=== PATIENT | female | born 1995 | race Two or more races ===

== ENCOUNTER 2018-08-13 20:15 | Emergency (ER) | payer MEDICAID ==
[~2018-08-13] VITALS: Ht 175.3 cm; Wt 111.1 kg
--- NOTE | 2018-08-13 22:15 | NUR ---
BIB SELF FROM HOME WITH . AAOX4. NAD, BREATHING EVEN AND UNLABORED. AMBULATORY. C/O ABDOMINAL CRAMPING SINCE 3AM THIS MORNING W/ X1 EPISODE OF BROWNISH-RED BLEEDING WITH CLOTS. -N/V/D. DENIES CP. PT STATES SHE IS 10WEEKS . LMP 05/25/18. TO ER BED 3. AWAITING MD FOR ORDERS
--- NOTE | 2018-08-13 22:22 | NUR ---
URINE COLLECTED AND SENT OT LAB.
--- NOTE | 2018-08-13 22:41 | NUR ---
LAB FOR BLOOD DRAW AT BEDSIDE. US AT BEDSIDE
[2018-08-13 22:42] LABS: APPEARANCE,URINE Clear (CLEAR); BILIRUBIN,URINE Negative (NEGATIVE); BLOOD, URINE Negative Ery/uL (NEGATIVE); COLOR,URINE Yellow (YELLOW); KETONES,URINE Negative (NEGATIVE); LEUKOCYTE ESTERASE ,URINE Negative (NEGATIVE); NITRITE, URINE Negative (NEGATIVE); PROTEIN,URINE Negative (NEGATIVE); UGLUCOSE Negative (NEGATIVE); UROBILINOGEN,URINE 0.2 EU/dL (0.2)
[2018-08-13 22:51] LABS: BASOPHILS # (AUTO) 0.1 /CMM (0.0-0.2); BASOPHILS % (AUTO) 0.6 % (0.0-2.0); EOSINOPHILS % (AUTO) 1.1 % (0.0-6.0); HEMATOCRIT 35 % (33-45); HEMOGLOBIN 11.8 g/dL (11.5-14.8); LYMPHOCYTES # (AUTO) 3.8 /CMM (0.8-4.8); LYMPHOCYTES % (AUTO) 28.2 % (20.0-44.0); MEAN CORPUSCULAR HGB CONC 34 g/dl (31.0-36.0); MEAN CORPUSCULAR VOLUME 82 fL (82-100); MONOCYTES # (AUTO) 0.7 /CMM (0.1-1.30); MONOCYTES % (AUTO) 5.3 % (2.0-12.0); NEUTROPHILS # (AUTO) 8.8 /CMM (1.8-8.9); NEUTROPHILS % (AUTO) 64.8 % (43.0-81.0); PLATELET COUNT (AUTO) 337 /CMM (150-450); WHITE BLOOD COUNT (AUTO) 13.6 K/uL (4.3-11.0)
[2018-08-13 23:01] LABS: CALCIUM, SERUM 8.8 mg/dL (8.5-10.1); CREATININE 0.5 mg/dL (0.6-1.3); POTASSIUM 3.4 mmol/L (3.5-5.1)
--- NOTE | 2018-08-14 00:28 | NUR ---
Patient discharged to home in stable condition. Written and verbal after care instructions given. Patient verbalizes understanding of instruction. Pt ambulatory with a steady gait
[2018-08-14 00:31] VITALS: BP 136/86
== END 2018-08-14 00:32 | disposition home or self-care (01) ==
LOC: ER 20:26
DX: O26.891 Other specified pregnancy related conditions, first trimester (principal); R10.2 Pelvic and perineal pain; Z88.0 Allergy status to penicillin
CPT/HCPCS: 36415; 76805-TC; 80048-TC; 81000-TC; 84702-TC; 85025-TC; 85730-TC

== ENCOUNTER 2023-02-23 09:44 | Emergency (ER) | payer MEDICAID, OTHER ==
[~2023-02-23] VITALS: Ht 167.6 cm; Wt 127.0 kg
[2023-02-23 09:59] VITALS: O2SAT 100
[2023-02-23] MEDS ORDERED: KETOROLAC TROMETHAMINE INJ 30 MG/ML VIAL ONE (10:29)
[2023-02-23] MEDS ORDERED: KETOROLAC TROMETHAMINE INJ 30 MG/ML VIAL IM ONE (10:30)
[2023-02-23 10:40] VITALS: BP 141/77; TEMP 98.4; O2SAT 100
== END 2023-02-23 11:16 | disposition home or self-care (01) ==
LOC: ER 09:53
DX: M25.571 Pain in right ankle and joints of right foot (principal); Z88.0 Allergy status to penicillin
CPT/HCPCS: 99284; 96372; 73610; 73630; J1885